=== PATIENT | female | born 1980 | race Caucasian/White ===

== ENCOUNTER → 2020-12-28 11:14 | Outpatient (BNVA) | payer OTHER, SELFPAY | PROVIDERS: Visit Provider Internal Medicine | DX: B99.9 Unspecified infectious disease (principal) | CPT/HCPCS: 99202 ==

== ENCOUNTER 2022-05-03 21:19 | Emergency (ER) | payer OTHER, SELFPAY ==
[2022-05-03 21:34] VITALS: BP 152/83; PULSE 72; RESP 18; TEMP 37.2; O2SAT 99; BMI 40.2
[2022-05-03 22:03] LABS: MANUAL DIFF FLAG NO
[2022-05-03 22:05] LABS: Appearance Urine Clear; Basophils Percent Auto 0.4 % (0-2); Color Urine Yellow; Eosinophils Absolute Auto 0.1 X10*3/uL (0.0-0.4); Glucose Urine UA Negative (Negative); Hematocrit 41.4 % (37.0-47.0); Hemoglobin 13.2 g/dl (12.0-16.0); Imm Gran Abs Auto 0.07 X10*3/uL (0.00-0.03); Imm Gran Pct Auto 0.7 % (0.0-0.4); Leukocyte Esterase Urine Negative (Negative); Lymphocytes Absolute Auto 2.6 X10*3/uL (1.2-4.9); Lymphocytes Percent Auto 24.1 % (20-40); Mean Corpuscular HGB Conc 31.9 g/dl (31.0-35.0); Mean Corpuscular Hemoglobin 29.6 pg (27.0-33.0); Mean Corpuscular Volume 92.8 fL (80.0-98.0); Mean Platelet Volume 10.8 fL (9.4-12.3); Monocytes Absolute Auto 0.8 X10*3/uL (0.1-1.2); Monocytes Percent Auto 7.1 % (2-11); Neutrophils Absolute Auto 7.1 x10*3/uL (2.0-8.3); Neutrophils Percent Auto 66.7 % (45-73); Nitrite Urine Negative (Negative); PH 7.5 (5.0-9.0); Platelet Count 288 X10*3/uL (160-400); Red Blood Count 4.46 X10*6/uL (4.20-5.50); Red Cell Distribution Width 13.2 % (11.0-16.0); Specific Gravity - Urine 1.025 (1.005-1.025); Urine Blood Negative (Negative); Urine Ketones Negative (Negative); Urine Protein Negative (Neg-Trace); White Blood Count 10.7 X10*3/uL (4.8-10.8)
[2022-05-03 22:21] LABS: Alanine Aminotransferase 16 U/L (0-31); Alkaline Phosphatase 59 U/L (39-117); Anion Gap 11 (12-20); Aspartate Amino Transferase 16 U/L (5-31); Bilirubin Total 0.8 mg/dL (0.0-1.0); Blood Urea Nitrogen 16 mg/dL (9-16); Calcium 8.9 mg/dL (8.4-10.2); Carbon Dioxide 26 mmol/L (22-29); Chloride 111 mmol/L (96-108); Creatinine Clr Calc Pharmacy 93.9; Estimated Glomerular Filt Rate > 60; Glucose Random 87 mg/dL (60-115); Lipase 19 U/L (8-78); Potassium 4.1 mmol/L (3.3-5.1); Sodium 144 mmol/L (135-145); Total Protein 6.7 g/dL (6.5-8.0)
[2022-05-04 00:36] VITALS: BP 142/85; PULSE 60; RESP 16; TEMP 36.8; O2SAT 98
--- NOTE | 2022-05-04 00:37 | MHC.EDTECH ---
patient was called back to triage to re check vitals sign .
[2022-05-04 02:05] LABS: CT PCR NOT DETECTED (Not Detect.); NG PCR NOT DETECTED (Not Detect.)
[2022-05-04 03:01] VITALS: BP 137/85; PULSE 66; RESP 16; TEMP 36.2; O2SAT 97
--- NOTE | 2022-05-04 03:18 | ED_ITS ---
HPI - Female Genitourinary General Chief complaint: Abdominal Pain Stated complaint: ?UTI Time Seen by Provider: 05/04/22 02:27 Source: patient Mode of arrival: ambulatory Limitations: no limitations History of Present Illness HPI Narrative: Patient with history of interstitial cystitis IBS and H pylori gastritis c omplaining of dysuria for last 1 week also complaining of abdominal pain no fever no chills no hematuria patient is on the increased stress 2 months ago denies any vaginal discharge patient able to sleep for last few nights with increased stress Related Data Home Medications Medication Instructions Recorded Confirmed cyclobenzaprine 10 mg tablet 10 mg PO BEDTIME 02/08/22 02/08/22 dicyclomine 20 mg tablet 20 mg PO BID 02/08/22 02/08/22 famotidine 20 mg tablet 20 mg PO BID 02/08/22 02/08/22 fexofenadine 60 mg tablet (Sherry 60 mg PO DAILY 02/08/22 02/08/22 Allergy) fluticasone propionate 50 1 spray intranasal BID 02/08/22 02/08/22 mcg/actuation nasal spray,suspension (Allergy Relief (fluticasone)) hydroxyzine HCl 25 mg tablet 25 mg PO TID PRN 02/08/22 02/08/22 sucralfate 1 gram tablet 1 g PO QIDACHS 02/08/22 02/08/22 trazodone 50 mg tablet 50 mg PO BEDTIME PRN 02/08/22 02/08/22 Previous Rx's Medication Instructions Recorded lorazepam 1 mg tablet (Ativan) 1 mg PO BEDTIME PRN sleep #10 tabs 05/04/22 phenazopyridine 200 mg tablet 200 mg PO TID 6 doses #6 tabs 05/04/22 (Pyridium) Allergies Allergy/AdvReac Type Severity Reaction Status Date / Time Penicillins [PENICILLINS] Allergy Unknown SWELLING Verified 05/03/22 21:33 Review of Systems Review of Systems: Yes all other systems are reviewed and are negative PMFSH Past Medical History Medical History Anxiety Chronic nonintractable headache Depression IBS (irritable bowel syndrome) Obesity (BMI 35.0-39.9 without comorbidity) OCD (obsessive compulsive disorder) Recurrent infections Surgical History Hx of colonoscopy Family History Family History Father Hypertension Myocardial infarct CVA (cerebral vascular accident) Mother Diabetes Hypertension Maternal Grandfather Prostate cancer Maternal Grandmother Myocardial infarct Social History Social History Smoked in Last 30 Days: No Advance Directives: No Advance Directives Information Provided: No Physical Exam Vital Signs: Vital Signs: Last Vital Signs Temp 97.2 F 05/04/22 03:01 Pulse 66 05/04/22 03:01 Resp 16 05/04/22 03:01 BP 137/85 05/04/22 03:01 Pulse Ox 97 05/04/22 03:01 O2 Del Method 05/04/22 03:01 BMI result Body Mass Index 40.2 Appearance: Alert. Oriented X3. No acute distress. Anxious ENT: Pharynx normal. Oral Mucosa moist Neck: Normal inspection. Neck supple. CVS: Normal heart rate and rhythm. Pulses normal. Respiratory: No respiratory distress. Equal air entry bilateral, no wheezing/rales/rhonchi Abdomen: Soft, mild tenderness epigastric suprapubic area no rebound tenderness or guarding Bowel sounds are present, no mass palpable, no CVA tenderness Skin: Skin warm and dry. Normal skin color. Normal skin turgor. Extremities: No lower extremity edema. No calf tenderness Neuro: Oriented X 3. No motor deficit. Medications Administered Discontinued Medications Generic Name Dose Route Start Last Admin Trade Name Freq PRN Reason Stop Dose Admin Phenazopyridine HCl 200 mg 05/04/22 03:18 05/04/22 03:31 Phenazopyridine Hcl 200 Mg Tablet PO 05/04/22 03:19 200 mg ONCE ONE Administration Medical Decision Making Medical Decision Making [facility] Narrative: Patient with IBS/interstitial cystitis with urinary symptoms and increased anxiety urine is negative for UTI discharge patient home on Ativan and pyridium advised to follow with urologist Differential Diagnosis UTI/pyelonephritis/gastritis/pancreatitis Lab Data [facility] Lab Attestation statement: I reviewed the patient's lab results. 05/03/22 21:56 05/03/22 21:56 Labs: Lab Results 02/23/23 02/23/23 02/23/23 Range/Units 21:56 21:56 21:56 WBC 10.7 (4.8-10.8) X10*3/uL RBC 4.46 (4.20-5.50) X10*6/uL Hgb 13.2 (12.0-16.0) g/dl Hct 41.4 (37.0-47.0) % MCV 92.8 (80.0-98.0) fL MCH 29.6 (27.0-33.0) pg MCHC 31.9 (31.0-35.0) g/dl RDW 13.2 (11.0-16.0) % Plt Count 288 (160-400) X10*3/uL MPV 10.8 (9.4-12.3) fL Immature Gran % (Auto) 0.7 H (0.0-0.4) % Neut % (Auto) 66.7 (45-73) % Lymph % (Auto) 24.1 (20-40) % [place] % (Auto) 7.1 (2-11) % Eos % (Auto) 1.0 (0-4) % Baso % (Auto) 0.4 (0-2) % Lymph # (Auto) 2.6 (1.2-4.9) X10*3/uL [place] # (Auto) 0.8 (0.1-1.2) X10*3/uL Eos # (Auto) 0.1 (0.0-0.4) X10*3/uL Baso # (Auto) 0.0 (0.0-0.2) X10*3/uL Abs Immat Gran (auto) 0.07 H (0.00-0.03) X10*3/uL Absolute Neuts (auto) 7.1 (2.0-8.3) x10*3/uL Absolute Nucleated RBC 0.000 (0.0-0.012) X10*3/uL Nucleated RBC % (auto) 0.0 (0.0-0.2) /100WBC Sodium 144 (135-145) mmol/L Potassium 4.1 (3.3-5.1) mmol/L Chloride 111 H (96-108) mmol/L Carbon Dioxide 26 (22-29) mmol/L Anion Gap 11 L (12-20) BUN 16 (9-16) mg/dL Creatinine 0.87 (0.5-1.4) mg/dL Estim Creat Clear Calc 93.9 Estimated GFR > 60 Random Glucose 87 (60-115) mg/dL Calcium 8.9 (8.4-10.2) mg/dL Total Bilirubin 0.8 (0.0-1.0) mg/dL AST 16 (5-31) U/L ALT 16 (0-31) U/L Alkaline Phosphatase 59 (39-117) U/L Total Protein 6.7 (6.5-8.0) g/dL Albumin 4.0 (3.5-5.0) g/dL Lipase 19 (8-78) U/L Urine Color Urine Appearance Urine pH (5.0-9.0) Ur Specific [place] (1.005-1.025) Urine Protein (Neg-Trace) mg/dL Urine Glucose (UA) (Negative) mg/dL Urine Ketones (Negative) mg/dL Urine Blood (Negative) Urine Nitrite (Negative) Ur Leukocyte Esterase (Negative) Chlam trachomat DNA PCR NOT DETECTED (Not Detect.) N.gonorrhoeae DNA (PCR) NOT DETECTED (Not Detect.) 05/03/22 Range/Units 21:56 WBC (4.8-10.8) X10*3/uL RBC (4.20-5.50) X10*6/uL Hgb (12.0-16.0) g/dl Hct (37.0-47.0) % MCV (80.0-98.0) fL MCH (27.0-33.0) pg MCHC (31.0-35.0) g/dl RDW (11.0-16.0) % Plt Count (160-400) X10*3/uL MPV (9.4-12.3) fL Immature Gran % (Auto) (0.0-0.4) % Neut % (Auto) (45-73) % Lymph % (Auto) (20-40) % [place] % (Auto) (2-11) % Eos % (Auto) (0-4) % Baso % (Auto) (0-2) % Lymph # (Auto) (1.2-4.9) X10*3/uL [place] # (Auto) (0.1-1.2) X10*3/uL Eos # (Auto) (0.0-0.4) X10*3/uL Baso # (Auto) (0.0-0.2) X10*3/uL Abs Immat Gran (auto) (0.00-0.03) X10*3/uL Absolute Neuts (auto) (2.0-8.3) x10*3/uL Absolute Nucleated RBC (0.0-0.012) X10*3/uL Nucleated RBC % (auto) (0.0-0.2) /100WBC Sodium (135-145) mmol/L Potassium (3.3-5.1) mmol/L Chloride (96-108) mmol/L Carbon Dioxide (22-29) mmol/L Anion Gap (12-20) BUN (9-16) mg/dL Creatinine (0.5-1.4) mg/dL Estim Creat Clear Calc Estimated GFR Random Glucose (60-115) mg/dL Calcium (8.4-10.2) mg/dL Total Bilirubin (0.0-1.0) mg/dL AST (5-31) U/L ALT (0-31) U/L Alkaline Phosphatase (39-117) U/L Total Protein (6.5-8.0) g/dL Albumin (3.5-5.0) g/dL Lipase (8-78) U/L Urine Color Yellow Urine Appearance Clear Urine pH 7.5 (5.0-9.0) Ur Specific [place] 1.025 (1.005-1.025) Urine Protein Negative (Neg-Trace) mg/dL Urine Glucose (UA) Negative (Negative) mg/dL Urine Ketones Negative (Negative) mg/dL Urine Blood Negative (Negative) Urine Nitrite Negative (Negative) Ur Leukocyte Esterase Negative (Negative) Chlam trachomat DNA PCR (Not Detect.) N.gonorrhoeae DNA (PCR) (Not Detect.) Discharge Plan Discharge Clinical Impression: Interstitial cystitis, Anxiety Patient Disposition: Home, Self-Care Instructions: Anxiety (ED), Interstitial Cystitis (ED) Additional Instructions: Take medication for anxiety and Pyridium for pelvic pain urine is negative for infection follow with urologist Prescriptions: New phenazopyridine [Pyridium] 200 mg tablet 200 mg PO TID Qty: 6 0RF lorazepam [Ativan] 1 mg tablet 1 mg PO BEDTIME PRN (Reason: sleep) Qty: 10 0RF No Action dicyclomine 20 mg tablet 20 mg PO BID fluticasone propionate [Allergy Relief (fluticasone)] 50 mcg/actuation spray,suspension 1 spray intranasal BID Rx Instructions: administer into each nostril famotidine 20 mg tablet 20 mg PO BID trazodone 50 mg tablet 50 mg PO BEDTIME PRN hydroxyzine HCl 25 mg tablet 25 mg PO TID PRN sucralfate 1 gram tablet 1 g PO QIDACHS fexofenadine [Sherry Allergy] 60 mg tablet 60 mg PO DAILY cyclobenzaprine 10 mg tablet 10 mg PO BEDTIME Interventions: ED Discharge Assessment Last Done: 05/04/22 03:35 Discharge Date/Time: 05/04/22 03:36
[2022-05-04] MEDS: Phenazopyridine HCL 200 MG TABLET PO (03:31)
--- NOTE | 2022-05-04 03:32 | PC.NURSE ---
Pt a&o, no sob or chest pain, Medicated per Mar, Reviewed discharge instructions with pt, pt verbalized understanding,
== END 2022-05-04 03:36 | disposition home or self-care (01) ==
PROVIDERS: Emergency Provider Internal Medicine; PCP Physician Assistant
DX: N30.10 Interstitial cystitis (chronic) without hematuria (principal); F41.1 Generalized anxiety disorder; F43.0 Acute stress reaction; Z79.899 Other long term (current) drug therapy
CPT/HCPCS: 0353U; 36415; 80053; 81003; 83690; 85025; 99283; 99284

== ENCOUNTER 2022-08-29 23:45 | Emergency (ER) | payer OTHER, SELFPAY ==
--- NOTE | ~2022-08-29 | XR_ITS ---
EXAMINATION: XR WRIST, LEFT XR HAND, LEFT CLINICAL INFORMATION: Injury, pain. COMPARISON: None available. TECHNIQUE: PA, lateral, and oblique views of the left wrist and left hand. FINDINGS: No acute fractures or malalignment. No significant degenerative changes. No unexpected radiopaque foreign bodies. XR/XR hand wrist LT IMPRESSION: No acute fractures or malalignment. If symptoms persist, recommend an interval radiograph as early nondisplaced fractures could be radiographically occult.
[2022-08-29 23:57] VITALS: BP 108/77; PULSE 69; RESP 16; TEMP 36.4; O2SAT 100; BMI 38.4
--- NOTE | 2022-08-30 00:31 | ED.EXTPRO ---
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 Patient states she hyperextended they left hand and wrist while trying to restrain a patient, at the same time a staff member accidentally stepped on her hand. She states she developed swelling and purplish discoloration of her left index finger after the event. She applied ice to the area but has continued swelling and pain. She states the pain is worse with flexion of the index finger, extension and flexion of the left wrist. She states when she flexes the wrist the pain shoots up into the left forearm. No weakness, numbness, tingling. No other injuries. MD Complaint: extremity pain and extremity swelling Onset (ago): hour(s) (6) Pain Consistency: constant Location: left Quality: sharp Radiation: proximal Relieving factors: rest Exacerbating factors: range of motion and palpation Associated symptoms: denies other symptoms Related Data Home Medications Medication Instructions Recorded Confirmed cyclobenzaprine 10 mg tablet 10 mg PO BEDTIME 02/08/22 02/08/22 dicyclomine 20 mg tablet 20 mg PO BID 02/08/22 02/08/22 famotidine 20 mg tablet 20 mg PO BID 02/08/22 02/08/22 fexofenadine 60 mg tablet (Sherry 60 mg PO DAILY 02/08/22 02/08/22 Allergy) fluticasone propionate 50 1 spray intranasal BID 02/08/22 02/08/22 mcg/actuation nasal spray,suspension (Allergy Relief (fluticasone)) hydroxyzine HCl 25 mg tablet 25 mg PO TID PRN 02/08/22 02/08/22 sucralfate 1 gram tablet 1 g PO QIDACHS 02/08/22 02/08/22 trazodone 50 mg tablet 50 mg PO BEDTIME PRN 02/08/22 02/08/22 Previous Rx's Medication Instructions Recorded lorazepam 1 mg tablet (Ativan) 1 mg PO BEDTIME PRN sleep #10 tabs 05/04/22 phenazopyridine 200 mg tablet 200 mg PO TID 6 doses #6 tabs 05/04/22 (Pyridium) Allergies Allergy/AdvReac Type Severity Reaction Status Date / Time Penicillins [PENICILLINS] Allergy Unknown SWELLING Verified 08/30/22 00:05 Review of Systems Review of Systems: Yes all other systems are reviewed and are negative [facility] Past Medical History Medical History Anxiety Chronic nonintractable headache Depression IBS (irritable bowel syndrome) Obesity (BMI 35.0-39.9 without comorbidity) OCD (obsessive compulsive disorder) Recurrent infections Surgical History Hx of colonoscopy Family History Family History Father Hypertension Myocardial infarct CVA (cerebral vascular accident) Mother Diabetes Hypertension Maternal Grandfather Prostate cancer Maternal Grandmother Myocardial infarct Social History Social History Advance Directives: No Advance Directives Information Provided: No Physical Exam Vital Signs: Vital Signs: Last Vital Signs Temp 97.5 F 08/29/22 23:57 Pulse 69 08/29/22 23:57 Resp 16 08/29/22 23:57 BP 108/77 08/29/22 23:57 Pulse Ox 100 08/29/22 23:57 O2 Del Method Room Air 08/29/22 23:57 BMI result Body Mass Index 38.4 Appearance: Alert. Oriented X3. No acute distress. HEENT: normal inspection CVS: Normal heart rate and rhythm. Pulses normal. Respiratory: No respiratory distress. Skin: Skin warm and dry. Normal skin color. Normal skin turgor. No rashes. Extremities: Palmar aspect of the left index finger with mild generalized swelling, early ecchymosis to the digit, limited flexion due to pain and swelling. Cap refill less than 3 seconds in all digits. No tenderness of the metatarsals. Normal range of motion of the wrist however there is pain with flexion and hyperextension. No point tenderness of the distal ulna or radius. Normal range of motion of the left elbow, nontender Neuro: Oriented X 3. No motor deficit. No sensory deficit. Medical Decision Making Medical Decision Making MDM Narrative: 41-year-old female presents to the ER for evaluation of left index finger, left hand and left wrist pain after a hyper extension injury at work today around 18:00. She is neurovascularly intact with some early ecchymosis to the left index finger. X-rays showing no acute fracture. likely wrist sprain and finger contusion. placed in velcro wrist splint for comfort. stable for d/c home. Differential Diagnosis Differential Diagnoses: The differential diagnosis associated with the presentation includes Wrist sprain, wrist fracture, wrist contusion, finger sprain, finger fracture Independent Interpretation I performed an independent interpretation of an: Plain X-Ray Interpretation: Left hand x-ray normal, agree with radiologist's read Radiology Impression Discussion of test interpretation with radiology: I have reviewed the radiologist's reading. Radiologist Impression: XR/XR hand wrist LT IMPRESSION: No acute fractures or malalignment External Record Review External record reviewed: Prior outpatient labs Prescription Management I considered prescription management with: Pain Medication Critical Care Time Critical Care Time Critical Care Time: No Discharge Plan Discharge Clinical Impression: Contusion of finger, Left wrist sprain Patient Disposition: Home, Self-Care Instructions: Contusion in Adults (ED), Wrist Sprain (ED) Additional Instructions: Your x-ray today was normal. Rest your hand and elevate when possible. Recommend wrist splint for immobilization and support while healing. Use ice several times per day for the next 48 hours. Take Motrin and/or Tylenol as needed for pain. Follow up with your doctor as needed. Prescriptions: No Action phenazopyridine [Pyridium] 200 mg tablet 200 mg PO TID Qty: 6 0RF lorazepam [Ativan] 1 mg tablet 1 mg PO BEDTIME PRN (Reason: sleep) Qty: 10 0RF dicyclomine 20 mg tablet 20 mg PO BID fluticasone propionate [Allergy Relief (fluticasone)] 50 mcg/actuation spray,suspension 1 spray intranasal BID Rx Instructions: administer into each nostril famotidine 20 mg tablet 20 mg PO BID trazodone 50 mg tablet 50 mg PO BEDTIME PRN hydroxyzine HCl 25 mg tablet 25 mg PO TID PRN sucralfate 1 gram tablet 1 g PO QIDACHS fexofenadine [Sherry Allergy] 60 mg tablet 60 mg PO DAILY cyclobenzaprine 10 mg tablet 10 mg PO BEDTIME Referrals: [facility] [Provider Group] Stand Alone Forms: Work/School Release
[2022-08-30 01:35] VITALS: BP 104/65; PULSE 72; RESP 16; TEMP 36.6; O2SAT 98
--- NOTE | 2022-08-30 01:50 | PC.NURSE ---
vss. pt calm and cooperative. L wrist splint in place by hedis coordinator. cms intact pt able to move digits appropriately. pt ambulatory at discharge. pt provided with discharge packet and work note. pt verbalized understanding of discharge plan
== END 2022-08-30 01:52 | disposition home or self-care (01) ==
PROVIDERS: Emergency Provider Internal Medicine
DX: S60.022A Contusion of left index finger without damage to nail, initial encounter (principal); S63.502A Unspecified sprain of left wrist, initial encounter; X50.9XXA Other and unspecified overexertion or strenuous movements or postures, initial encounter; Y93.F9 Activity, other caregiving; Y92.238 Other place in hospital as the place of occurrence of the external cause; Y99.0 Civilian activity done for income or pay
CPT/HCPCS: 73110; 73130; 99283; 99284

== ENCOUNTER 2023-03-09 18:15 | Emergency (ER) | payer OTHER, SELFPAY ==
[2023-03-09 19:12] VITALS: BP 125/78; PULSE 80; RESP 18; TEMP 36; O2SAT 97; BMI 38.4
== END 2023-03-10 02:44 | disposition left against medical advice (07) ==
PROVIDERS: Emergency Provider Emergency Medicine; PCP Internal Medicine
DX: M79.604 Pain in right leg (principal)
CPT/HCPCS: 99281

== ENCOUNTER 2025-02-19 09:05 | Outpatient (REF) | payer OTHER, SELFPAY ==
[2025-02-19 16:23] LABS: Bacterial Vaginosis PCR NEGATIVE (Negative); Candida Group PCR NOT DETECTED (Not Detect); Candida glab krusei PCR NOT DETECTED (Not Detect); Trichomonas vaginalis PCR NOT DETECTED (Not Detect)
[2025-02-19 16:55] LABS: CT PCR NOT DETECTED (Not Detect.); NG PCR NOT DETECTED (Not Detect.)
== END 2025-02-19 09:06 | disposition home or self-care (01) ==
LOC: HO.LNP 09:05
PROVIDERS: PCP Internal Medicine; Visit Provider Advanced Practice Midwife
DX: Z01.419 Encounter for gynecological examination (general) (routine) without abnormal findings (principal); R31.29 Other microscopic hematuria; Z12.39 Encounter for other screening for malignant neoplasm of breast; Z20.2 Contact with and (suspected) exposure to infections with a predominantly sexual mode of transmission; N95.1 Menopausal and female climacteric states
CPT/HCPCS: 81515; 87086; 87491; 87591; 87626; 88175